=== PATIENT | male | born 1980 | race Caucasian/White ===

== ENCOUNTER 2023-07-08 19:56 | Emergency (ER) | payer OTHER, SELFPAY ==
[2023-07-08 19:57] VITALS: BP 107/71
[2023-07-08] MEDS: ZOFRAN ODT (ORALLY DISINTEGRATING) 4 MG PO (21:18)
--- NOTE | 2023-07-08 22:51 | ED.GENMED ---
History of Present Illness
General
Chief Complaint: Head Injury
Source: patient and family
Exam Limitations: none
Time Seen by Provider: 07/08/23 20:27
Travel History
Have you had any contact with someone who has COVID-19?: No
Do you have any symptoms of coronavirus? Fever > 100 degrees, chills, cough, shortness of breath, sore throat, loss of taste or smell, muscle aches, or headache?: No
History of Present Illness
History of Present Illness:
43-year-old male presents after he fell. The patient states that stairs are wedge-shaped and he slipped backwards and hit his head. He did not fall down the steps. He states he has a long history of concussion with some chronic symptomatology and
is currently on disability for concussion. He reports headache and nausea. Nausea is mild. No motor weakness. He states his whole body feels like a tightness at times. Little bit of neck pain
Past History
Past History
ED Past Medical History: Other (Benign essential tremor, 'multiple concussions')
ED Past Surgical History: None
Social History
Tobacco: Non-smoker
Alcohol: Occasional
Personal: Single
Living: with family
Employment: Employed
Family History
Family History: Negative Early CAD
Phy Exam
Physical Exam
Physical Exam:
CONSTITUTIONAL Patient alert and oriented to person, place and time. Well-appearing. Vital signs reviewed.
HEAD atraumatic, normocephalic.
EYES eyelids normal to inspection, Pupils equally round and reactive to light, Extraocular muscles intact, Conjunctiva normal, Sclera normal.
NECK normal range of motion, Trachea midline, no jugular venous distention. No midline tenderness
RESPIRATORY CHEST No respiratory distress noted, Chest expansion equal
BACK normal inspection, no obvious deformities
UPPER EXTREMITY range of motion normal, Motor strength normal, no cyanosis, no edema.
LOWER EXTREMITY range of motion normal, Motor strength normal, no cyanosis, no edema.
NEURO Speech normal, No focal motor deficits, Marquita coma scale 15, Memory normal, Cranial Nerves intact to screening exam. No pronator drift
SKIN skin warm, dry, and normal in color.
PSYCHIATRIC patient oriented to person place and time, Normal affect.
Course
Orders/Labs/Results
Orders:
Orders
07/08/23 21:10
CT Cervical Spine W/o Iv Contr Urgent
Comment:
Reason For Exam: fall
CT Head W/o Iv Contrast Urgent
Comment:
Reason For Exam: fall
Ondansetron Orally Disint [Zofran Odt (Orally Disintegrating)] 4 mg PO NOW STA
Vital Signs
Initial and Last Documented VS:
Initial Vital Signs
Temp Pulse Resp BP Pulse Ox
97.7 F 68 16 107/71 97
07/08/23 19:57 07/08/23 19:57 07/08/23 19:57 07/08/23 19:57 07/08/23 19:57
Last Documented Vital Signs
Temp Pulse Resp BP Pulse Ox
97.7 F 68 16 107/71 97
07/08/23 19:57 07/08/23 19:57 07/08/23 19:57 07/08/23 19:57 07/08/23 19:57
MDM/Problems Addressed
MDM/Problems Addressed:
Head injury, concussion
*Pulse Oximetry
Patient hypoxic: no
*Critical Care Note
Total Time (30-74mins, 75-104mins- exclusive of procedures): Not Applicable
Data Reviewed
Source: patient and family
Further Testing Considered But Not Given:
Consider labs but not helpful as patient is well-appearing and some normal neuroexam and CT negative
Patient Management
Escalation/DeEscalation of care consider admission/obs:
CT negative. History of multiple concussions. Outpatient follow-up recommended
ED Attending Note
-
Portions of this chart may have been created with voice recognition software.� Occasional wrong word or��sound alike� substitutions may have occurred due to the inherent limitations of voice recognition software.
Discharge Plan
Departure
Patient Disposition: Home (Routine Discharge)
Date of Disposition: 07/08/23
Time of Disposition: 22:53
Patient with high blood pressure during this ER visit?: No
Discharge Problem:
Head injury
Instructions: Head Injury in Adults (DC)
Prescriptions:
No Action
propranolol 20 MG tablet
60 mg PO DAILY
hydrocodone-acetaminophen [Vicodin] 1 EACH tablet
1 ea PO Q6HPRN PRN (Reason: pain) Qty: 5 0RF
tramadol [Ultram] 50 MG tablet
50 mg PO Q6HPRN PRN (Reason: pain) Qty: 12 0RF
Referrals:
Camila Moctezuma CRNP [Family Provider] -
Activity Restrictions/Additional Instructions:
Please see your doctor or neurologist in the next 3 to 5 days for follow-up and reevaluation. Please rest. Return immediately for intractable vomiting, motor weakness of any kind or any other concerns.
Interventions
Interventions:
*Risk Screen - Suicide Last Done: 07/08/23 19:57
*General Assessment Last Done: 07/08/23 19:57
*Neglect/Abuse Screening Last Done: 07/08/23 19:57
ED- Fall Risk Assessment Last Done: 07/08/23 20:28
ED- Neurological Assessment Last Done: 07/08/23 20:28
ED-Skin Assessment Last Done: 07/08/23 20:28
Discharge Date and Time
Print Language: TANZANIAN
[2023-07-08 23:00] VITALS: BP 125/78
== END 2023-07-08 23:33 | disposition home or self-care (01) ==
LOC: EMR 19:56
PROVIDERS: EMERGENCY PHYSICIAN Emergency Medicine; FAMILY PHYSICIAN Nurse Practitioner Adult Health
DX: S09.90XA Unspecified injury of head, initial encounter (principal); W19.XXXA Unspecified fall, initial encounter; G25.0 Essential tremor
CPT/HCPCS: 99284; 70450; 72125

== ENCOUNTER 2023-10-06 09:29 | Emergency (ER) | payer OTHER, SELFPAY ==
[2023-10-06 09:46] VITALS: BP 116/75
--- NOTE | 2023-10-06 10:51 | ED.GENMED ---
History of Present Illness
General
Chief Complaint: Back Pain
Source: patient
Exam Limitations: none
Time Seen by Provider: 10/06/23 10:22
Nursing documentation reviewed up to this point in time: agreed with
History of Present Illness
History of Present Illness:
Patient is a 43-year-old male who presents to the ER for complaints of right back pain which radiates to his right leg. He reports about 2 weeks ago he was playing basketball the following morning woke up with pain in his right lower back. He saw
his family doctor and is taking the muscle laxer tramadol and completed steroids however now complains of pain that radiates to his right buttock into his right groin and down his right leg.. He denies any loss of bowel or bladder denies any
weakness in his right leg. He does feel little tingling in his right leg.
He reports he called his family doctor today who told him he likely will need an MRI and he reports he was expecting to get that today.
Past History
Past History
ED Past Medical History: Other (Benign essential tremor, 'multiple concussions')
ED Past Surgical History: None
Social History
Tobacco: Non-smoker
Alcohol: Occasional
Personal: Single
Living: with family
Employment: Employed
Family History
Family History: Negative Early CAD
Review of Systems
Review of Systems
Allergies reviewed?: Yes
All Other Systems: ROS reviewed and negative except as documented in HPI and ROS
Constitutional: Reports no symptoms
: Denies incontinence
Musculoskeletal: Reports back pain (right low back pain radiating to right leg )
Skin: Reports no symptoms
Neurological: Reports other (slight tingling in his right leg denies weakness )
Psychiatric: Reports no symptoms
Phy Exam
General Physical Exam
General Presentation: no apparent distress
General age: appears stated age
General Skin: warm and dry
General Habitus: normal
General Mental: alert
General Hydration: appears well hydrated
Neurological Exam
Neurological Exam: alert, oriented x3, no motor deficits, no sensory deficits and other (Normal distal sensation to bilateral lower extremities normal dorsiflexion plantarflexion normal patellar reflexes b/l )
Musculoskeletal Exam
Musculoskeletal Exam: full ROM and other (Tender in right paralumbar region normal inspection no bony midline tenderness)
Skin Exam
Skin Exam: normal color and warm/dry
Psychiatric Exam
Psychiatric Exam: normal mood/affect
Course
Orders/Labs/Results
Orders:
Orders
10/06/23 10:46
Dexamethasone Sod Phosphate [Decadron] 10 mg IM NOW STA
Ketorolac [Toradol] 30 mg IM NOW STA
Vital Signs
Initial and Last Documented VS:
Initial Vital Signs
Temp Pulse Resp BP Pulse Ox
97.7 F 76 16 116/75 94
10/06/23 09:46 10/06/23 09:46 10/06/23 09:46 10/06/23 09:46 10/06/23 09:46
Last Documented Vital Signs
Temp Pulse Resp BP Pulse Ox
97.7 F 76 16 116/75 94
10/06/23 09:46 10/06/23 09:46 10/06/23 09:46 10/06/23 09:46 10/06/23 09:46
MDM/Problems Addressed
Differential Diagnosis Includes:
Not limited to muscle strain/lumbar strain sciatica
MDM/Problems Addressed:
Symptoms are consistent with sciatica. Patient with no bowel or bladder incontinence no neurological deficits normal neurologic Dexter here in the ER. He recently completed steroids will give a dose of steroids here in the ER as well as Toradol. He
does have tramadol at home and does not want anything stronger. He admits that he came here for MRI however I did review with patient this is not done in the ER he is neurologically intact he will need outpatient follow-up. He wishes to only
receive the steroids here as well as Toradol, follow-up with family doctor for further evaluation. Discussed likely physical therapy possible MRI will give Ortho as well.
*Pulse Oximetry
Patient hypoxic: no
*Critical Care Note
Total Time (30-74mins, 75-104mins- exclusive of procedures): Not Applicable
ED Attending Note
-
Portions of this chart may have been created with voice recognition software.� Occasional wrong word or��sound alike� substitutions may have occurred due to the inherent limitations of voice recognition software.
Discharge Plan
Departure
Patient Disposition: Home (Routine Discharge)
Date of Disposition: 10/06/23
Time of Disposition: 10:58
Patient with high blood pressure during this ER visit?: No
Condition: Fair
Discharge Problem:
Sciatica
Instructions: Sciatica (DC)
Prescriptions:
No Action
propranolol 20 MG tablet
60 mg PO DAILY
hydrocodone-acetaminophen [Vicodin] 1 EACH tablet
1 ea PO Q6HPRN PRN (Reason: pain) Qty: 5 0RF
tramadol [Ultram] 50 MG tablet
50 mg PO Q6HPRN PRN (Reason: pain) Qty: 12 0RF
Referrals:
Purvi Powers DO [Family Provider] -
Balwinder Christopher MD [Active] -
Activity Restrictions/Additional Instructions:
Continue your Tramadol as previously recommended. It is likely that you will need additional imaging and also treatment including possible physical therapy. You were given 1 dose of steroids as well as anti-inflammatory here in the ER. Follow-up
with your family doctor the next 2 days as well as orthopedics return if any worsening of symptoms including worsening pain loss of bowel or bladder weakness in the leg or any further concerns
Interventions
Interventions:
*Risk Screen - Suicide Last Done: 10/06/23 09:46
*Neglect/Abuse Screening Last Done: 10/06/23 09:46
*ED COVID-19 Vaccine History Last Done: 10/06/23 09:46
Discharge Date and Time
Print Language: NEPALI
[2023-10-06] MEDS: DECADRON 10 MG IM (11:12)
[2023-10-06] MEDS: TORADOL 30 MG IM (11:12)
== END 2023-10-06 11:25 | disposition home or self-care (01) ==
LOC: EMR 09:29
PROVIDERS: EMERGENCY PHYSICIAN Student in an Organized Health Care Education/Training Program; FAMILY PHYSICIAN Family Medicine
DX: M54.30 Sciatica, unspecified side (principal)
CPT/HCPCS: 99282; 96372

== ENCOUNTER → 2023-10-11 13:47 | Outpatient (REF) | payer OTHER, SELFPAY | LOC: RAD 13:47 | PROVIDERS: ATTENDING PHYSICIAN Family Medicine | DX: S33.5XXA Sprain of ligaments of lumbar spine, initial encounter (principal) | CPT/HCPCS: 72110 ==